=== PATIENT | male | born 1950 | race Hispanic/Latino ===

== ENCOUNTER 2024-08-24 21:50 | Emergency (ER) | payer OTHER ==
[~2024-08-24] VITALS: Ht 167.6 cm; Wt 75.7 kg
--- NOTE | 2024-08-24 22:11 | ERN ---
ED Note History of Present Illness Stated Complaint: CHEST PAIN,MULTIPLE COMPLAINTS Chief Complaint: Abdominal Pain Time Seen by MD: 22:05 Dictation: This is a 74-year-old male who came into the emergency room with multiple somatic complaints including chest pain epigastric pain generalized weakness. The daughter who accompanied him stated that he was fine up until evening and after he was left alone between 6 and 9:00 p.m. she received a call from him stating that he did not feel well he had epigastric pain and had emesis. He also had pain in his both arms. No history of any hematemesis or melena. No diarrhea. Patient had a similar presentation in the past when he had a perforated peptic ulcer disease with massive GI bleed and they wanted to come to the ER to make sure he was okay Blood pressure is 196 systolic, heart rate 90 respirations 20 blood pressure 90 8.7 with a pulse oximetry of 98% on room air His chronic medical problems include hypercholesterolemia, hypertension, history of a perforated peptic ulcer disease, coronary artery disease. He is a daily smoker of cigarettes Past Medical History Past Medical History: High Cholesterol, Heart Disease, Hypertension Additional Past Medical Hx: HX OF RUPTURED ULCERS Surgical History: Unknown Family History: Negative Social History: Smokers RN Note Reviewed/Agreed w/PFSH: Yes Review of System Dictation Constitutional: Negative for fever,chills, and weight loss positive for generalized weakness Eyes: Negative for injury, pain,redness, and discharge ENT: Negative for injury,pain or swelling Cardiovascular: Positive for chest pain, denies palpitations, and edema Respiratory: Negative for shortness of breath, cough, and wheezing, Abdomen/GI: Positive for epigastric abdominal pain, denies nausea, vomiting, diarrhea, and constipation Back: Negative for injury and pain : Negative for injury, bleeding and discharge MS/Extremity: Negative for injury and deformity Skin: Negative for rash, and discoloration Neuro: Negative for headache, weakness, numbness, tingling, and seizure Psych: Negative for suicide ideation, homicidal ideation, and hallucinations Initial Vital Sign VS Vital Signs Date Time Temp Pulse Resp B/P (MAP) Pulse Ox O2 Delivery O2 Flow Rate FiO2 08/24/24 21:57 98.8 90 20 196/ 98 Room Air 08/25/24 00:18 0 21 Physical Exam Dictation General: awake, alert, NAD Head/Face: Normocephalic, atraumatic Eyes: PERRL, EOMI, vision at baseline ENT: oral cavity clear, TMs clear, no signs of infection Neck: Trachea midline, supple, no nuchal rigidity Cardiovascular: RRR, normal S1/S2, No MRGs, no JVD Respiratory: CTAB, no respiratory distress, No rales or wheezes Abdomen: Soft, non-tender, non-distended, normal bowel sounds, no guarding or rebound. Skin: Warm, dry, normal turgor, no rash MS/Extremity: Pulses equal, no cyanosis, neurovascular intact, FROM Neuro: COAx4, GCS 15, strength 5/5, CN 2-12 intact, normal cerebellar exam, normal gait, Psych: Normal behavior, mood, and affect normal Extremities-trace edema without any palpable cords, Homans sign is negative Results (Laboratory/Radiology) Laboratory/Radiology Laboratory Tests Test 08/24/24 22:21 08/24/24 22:58 White Blood Count 12.1 K/uL (4.8-10.8) H Red Blood Count 5.50 MIL/uL (4.50-6.20) Hemoglobin 16.0 g/dL (14.0-18.0) Hematocrit 48.2 % (42-54) Mean Corpuscular Volume 87.6 fL (79-99) Mean Corpuscular Hemoglobin 29.1 pg (27.0-33.0) Mean Corpuscular Hemoglobin Concent 33.2 g/dL (32.0-36.0) Red Cell Distribution Width 13.2 % (11.0-15.5) Platelet Count 167 K/uL (130-400) Mean Platelet Volume 10.3 fL (7.5-10.5) Immature Granulocyte % (Auto) 0.2 % (0-1) Neutrophils (%) (Auto) 93.0 % (40.0-77.0) H Lymphocytes (%) (Auto) 3.0 % (21.0-51.0) L Monocytes (%) (Auto) 2.7 % (3.0-13.0) L Eosinophils (%) (Auto) 0.9 % (0.0-8.0) Basophils (%) (Auto) 0.2 % (0.0-5.0) Neutrophils # (Auto) 11.3 K/uL (1.8-7.7) H Lymphocytes # (Auto) 0.4 K/uL (1.0-4.8) L Monocytes # (Auto) 0.3 K/uL (0.1-1.0) Eosinophils # (Auto) 0.11 K/uL (0.00-0.70) Basophils # (Auto) 0.02 K/uL (0.00-0.20) Absolute Immature Granulocyte (auto 0.03 K/uL (0-1) Nucleated Red Blood Cells 0.0 % (0.0-0.19) White Cell Morphology Comment CONSISTENT W/DIFF Urine Color LIGHT-YELLOW (YELLOW) Urine Appearance CLEAR (CLEAR) Urine pH 5.0 (5.0-8.0) Urine Specific [place] 1.026 (1.001-1.031) Urine Protein NEGATIVE mg/dL (NEGATIVE) Urine Glucose (UA) NEGATIVE mg/dL (NEGATIVE) Urine Ketones NEGATIVE mg/dL (NEGATIVE) Urine Occult Blood +- (TRACE) (NEGATIVE) H Urine Nitrate NEGATIVE (NEGATIVE) Urine Bilirubin NEGATIVE mg/dL (NEGATIVE) Urine Urobilinogen 0.2 mg/dL (0.2-1.0) Urine Leukocyte Esterase NEGATIVE Vinicius/uL Urine RBC 2-5 /HPF (0-1) H Urine WBC 0-1 /HPF (0-1) Urine Squamous Epithelial Cells RARE /HPF (0-2) Urine Bacteria None /HPF (None Seen) Sodium Level 144 mmol/L (136-145) Potassium Level 3.8 mmol/L (3.5-5.1) Chloride Level 106 mmol/L (101-111) Carbon Dioxide Level 29 mmol/L (21-32) Blood Urea Nitrogen 16 mg/dL (7-18) Creatinine 0.8 mg/dL (0.5-1.3) Glomerular Filtration Rate Calc 93 mL/min (>90) Random Glucose 128 mg/dL (70-105) H Lactic Acid Level 1.3 mmol/L (0.8-2.5) Total Calcium 8.6 mg/dL (8.5-10.1) Total Creatine Kinase 113 U/L (21-232) B-Type Natriuretic Peptide 8 pg/mL (0-100) Lipase 32 U/L (16-77) Troponin I < 0.05 ng/mL (0.00-0.05) Labs Reviewed?: Yes ED Course ED Course Orders Procedure Category Date Status Time Cbc With Differential LAB 08/24/24 Complete 22:06 B-Type Natriuretic LAB 08/24/24 Complete Peptide 22:06 Chest 1vw RAD 08/24/24 Taken 22:06 12 Lead Ekg Tracing- EKG 08/24/24 Logged Technical 22:06 Creatine Kinase, Total LAB 08/24/24 Complete 22:06 Urinalysis Profile LAB 08/24/24 Complete 22:06 Troponin Poc Order LAB 08/24/24 Complete Only 22:06 Basic Metabolic Panel LAB 08/24/24 Complete 22:06 Lactic Acid LAB 08/24/24 Complete 22:06 Lipase LAB 08/24/24 Complete 22:06 0.9% Nacl 500ml PHA 08/25/24 Complete Iv.Soln (Ns 500ml 00:00 Ondansetron 4mg Inj PHA 08/25/24 Complete (Zofran 4mg Inj) 00:00 Pantoprazole 40mg Inj PHA 08/25/24 Complete (Protonix 40mg Inj 00:00 Current Medications Medications (Trade) Dose Ordered Sig/Luann Route PRN Reason Start Time Stop Time Status Last Admin Dose Admin Ondansetron HCl (zoFRAN 4MG INJ) 4 mg ONCE ONCE IVP 08/25/24 00:00 08/25/24 00:01 DC 08/24/24 23:50 Pantoprazole Sodium (PROTonix 40MG INJ) 40 mg ONCE ONCE IVP 08/25/24 00:00 08/25/24 00:01 DC 08/24/24 23:50 Sodium Chloride 500 ml @ 0 mls/hr ONCE ONCE IV 08/25/24 00:00 08/25/24 00:01 DC 08/24/24 23:50 Vital Signs Date Time Temp Pulse Resp B/P (MAP) Pulse Ox O2 Delivery O2 Flow Rate FiO2 08/25/24 00:18 98.2 86 16 122/67 98 Room Air* 0 21 08/24/24 21:57 98.8 90 20 196/ 98 Room Air We will perform diagnostic labs, advanced imaging and administer medications according to the patient's complaint. Once the results are available, will review and personally interpreted the labs to rule out any acute life- threatening emergency the trach require immediate intervention and treatment. I will then re-evaluate the patient after treatment and diagnostic exams have return to determine whether the patient requires any further testing, can safely be discharged home or need further admission to hospital for additional treatment and evaluation. Labs reviewed CBC showed a white count of 12.1, urinalysis is negative BNP 7 is normal troponins are negative lipase is 32 brain natriuretic peptide is 8 I had a long discussion with the patient and daughter and went over the labs and workup so far including a negative chest x-ray and thought perhaps this was gastroduodenitis or prep perhaps indigestion. He responded to a PPI antiemetic and pain medication and is requesting to be discharged to home Discussed GERD precautions HEART Score Response (Comments) Value History: Low suspicion (0) 0 EKG: Normal 0 Age: > 65yrs (+2) 2 Risk Factors: 1-2 risk factors (+1) 1 Initial Troponin: Normal limit (0) 0 HEART Score Risk: Low Risk for MACE (1-3) Total 3 Medical Decision Making MDM MDM: Differential diagnosis: Indigestion, gastritis, cholecystitis, pancreatitis, duodenitis, peptic ulcer disease Rationale: Tests considered and ordered secondary to shared decision making include: Previous outside records reviewed: Old ER visits. Risk of complication and/or morbidity or mortality of patient management: None Medications-Per medication reconciliation Need for hospitalization: Patient does not meet criteria for hospitalization. Need for emergency major/minor surgery: No There are no social concerns with this patient. Prescription drug management Prescriptions will include symptomatic care Patient's prior external medical records from other ER visits were reviewed by me as indicated. Prior testing and results from previous visits were reviewed. Prior tests were taken into account with medical decision making and resource utilization, independent historian/historians were used to obtain complete medical history. I independently interpreted the test that were performed, results were reviewed by me and considered findings on radiology if ordered. Medical management and examination interpretation discussions were had by me with other qualified healthcare professionals as indicated for the patient's care. DX & DISP Disposition: Discharge Departure Impression: Primary Impression: Gastritis and duodenitis Additional Impressions: Bilateral arm pain, Nausea & vomiting Condition: Stable Additional Instructions: Patient and the caregiver have been informed of all the diagnostic tests and the imaging conducted during the today's visit to the emergency room and has verbalized understanding of the results I have personally reviewed and interpreted all diagnostic exams performed here in the ER today as well as the vital signs documented by the nursing staff. The patient is now being discharged to home and should follow up with the primary care physician or the specialist as directed by the ER staff. Follow-up with primary care provider in 1 to 2 days. Take medications as directed here in the emergency room. Okay to continue home medications unless otherwise discussed during your visit in the emergency room today. Return to your nearest emergency room if symptoms worsen or if there is no improvement. Call 911 if you need immediate assistance. Take Tylenol or Motrin [id number] as needed and if no contraindications are present. Increase oral hydration. A wound culture or urine culture was ordered here in the emergency room department please follow-up with primary care provider and advise them to get repeat ports from our facility. If you had any Drew wrap/splints that were applied here, please do not remove them until you see your primary care or specialty. BALDOMERO TURNER MD Aug 24, 2024 22:11
[2024-08-24 22:29] LABS: BASOPHILS # (AUTO) 0.02 K/uL (0.00-0.20); BASOPHILS % (AUTO) 0.2 % (0.0-5.0); EOSINOPHILS # (AUTO) 0.11 K/uL (0.00-0.70); EOSINOPHILS % (AUTO) 0.9 % (0.0-8.0); HEMATOCRIT 48.2 % (42-54); IMMATURE GRANULOCYTE ABSOLUTE 0.03 K/uL (0-1); LYMPHOCYTES # (AUTO) 0.4 K/uL (1.0-4.8); MEAN CORPUSCULAR HEMOGLOBIN 29.1 pg (27.0-33.0); MEAN CORPUSCULAR HGB CONC 33.2 g/dL (32.0-36.0); MEAN CORPUSCULAR VOLUME 87.6 fL (79-99); MONOCYTES # (AUTO) 0.3 K/uL (0.1-1.0); MONOCYTES % (AUTO) 2.7 % (3.0-13.0); NEUTROPHILS # (AUTO) 11.3 K/uL (1.8-7.7); PLATELET COUNT (AUTO) 167 K/uL (130-400); RED CELL DISTRIBUTION WIDTH 13.2 % (11.0-15.5); WHITE BLOOD COUNT (AUTO) 12.1 K/uL (4.8-10.8)
[2024-08-24 22:34] LABS: APPEARANCE,URINE CLEAR (CLEAR); BILIRUBIN,URINE NEGATIVE (NEGATIVE); COLOR,URINE LIGHT-YELLOW (YELLOW); GLUCOSE, URINE (UA) NEGATIVE (NEGATIVE); KETONES,URINE NEGATIVE (NEGATIVE); LEUKOCYTE ESTERASE ,URINE NEGATIVE Leu/uL (NEGATIVE); NITRATE,URINE NEGATIVE (NEGATIVE); PROTEIN,URINE NEGATIVE (NEGATIVE); UROBILINOGEN,URINE 0.2 mg/dL (0.2-1.0)
[2024-08-24 22:37] LABS: ADD UA MICROSCOPIC YES
[2024-08-24 22:39] LABS: MUCUS,URINE FEW LPF (None Seen); SQUAMOUS EPITHELIAL CELL,UR RARE /HPF (0-2); WBC,URINE 0-1 /HPF (0-1)
[2024-08-24 22:47] LABS: WBC MORPHOLOGY CONSISTENT W/DIFF
[2024-08-24 22:51] LABS: CREATININE 0.8 mg/dL (0.5-1.3); POTASSIUM 3.8 mmol/L (3.5-5.1)
[2024-08-24 23:02] LABS: B-TYPE NATRIURETIC PEPTIDE 8 pg/mL (0-100)
[2024-08-24] MEDS: ondanSETRON 4MG INJ IVP ONE (23:50)
[2024-08-24] MEDS: 0.9% NACL 500ML IV.SOLN 500 ML IV ONE (23:50)
[2024-08-24] MEDS: PANTOPrazole 40 MG/VIAL IVP ONE (23:50)
[2024-08-25 01:12] VITALS: BP 98/66; PULSE 88; RESP 18; TEMP 98.2; O2SAT 99
--- NOTE | 2024-08-25 06:10 | EKG ---
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
--- NOTE | 2024-08-25 08:18 | HMCIMG ---
CHEST 1VW REASON: chest pain weakness COMPARISON: None. FINDINGS: Single view of the chest was obtained. Lungs are clear. Heart size is normal. There is no pulmonary vascular congestion. Mediastinum and bony thorax appear unremarkable. IMPRESSION: 1. Normal single view chest x-ray.
== END 2024-08-25 01:37 | disposition home or self-care (01) ==
LOC: EDH 21:50
DX: K29.70 Gastritis, unspecified, without bleeding (principal); K29.80 Duodenitis without bleeding; M79.602 Pain in left arm; M79.601 Pain in right arm; E78.00 Pure hypercholesterolemia, unspecified; F17.200 Nicotine dependence, unspecified, uncomplicated; I11.9 Hypertensive heart disease without heart failure
CPT/HCPCS: 99285; 96374; 71045; 96375; 82550; 84484; 80048; 83880; 83690; 85025; 83605; 81001; 36415; 93005; J7040; J2405; J2470